=== PATIENT | male | born 1945 | race Caucasian/White ===

== ENCOUNTER 2017-03-16 10:21 | Day surgery (SDC) | payer OTHER ==
[2012-10-12 23:41] VITALS: BP 142/78
[~2017-03-16 10:21] MED LIST: LACTATED RINGERS 1,000 ML IV.SOLN IV ONE; LIDOCAINE HCL/PF 2% 100 MG/5 ML VIAL IJ ONE; PROPOFOL 500 MG/50 ML VIAL IV ONE; SALINE FLUSH 10 ML DISP.SYRIN IVF ONE
--- NOTE | 2017-03-16 15:18 | GI Report ---
REFERRING PHYSICIAN: DONTE Durham MACHINE [employer]TER [employer]ET METAL: Allen Nicholas MD PROCEDURE MEDICATION: Propofol as per anesthesia. INDICATIONS: Here for a screening colonoscopy. His last colonoscopy was over 10 years ago. No interval changes in stools or bleeding. PROCEDURE PERFORMED: Colonoscopy and snare polypectomy. PROCEDURE: An Olympus video colonoscope was advanced to the rectum. The sigmoid and descending colon does have mild diverticular disease. The colonoscope was slowly advanced to the cecum. A little bit of redundancy. It did take some nurse compression to get to the bottom of the cecum. The appendiceal orifice and ileocecal valve looked normal. On slow withdrawal, the cecum, ascending colon, and transverse colon with no obvious intraluminal lesions noted. The descending colon and sigmoid with some redundancy and a few diverticula. No additional intraluminal lesions noted. In the rectum, there was a 2 to 3 mm flat polyp removed with a cold snare at about 5 cm. Retroflexion does show some internal hemorrhoids. Patient tolerated the procedure well. FINDINGS: 1. Small polyp in the rectum, removed, 3 mm in size. 2. Internal hemorrhoids. 3. Diverticular disease of sigmoid and descending colon. RECOMMENDATIONS: 1. A high-fiber diet. 2. Consider re-looking at his colon in 5 to 10 years pending the pathology of the polyp. cc: DONTE Durham [facility]
== END 2017-03-16 10:22 ==
LOC: OPSURG 10:21
PROVIDERS: ATTEND Internal Medicine Gastroenterology
DX: Z12.11 Encounter for screening for malignant neoplasm of colon (principal); K62.1 Rectal polyp; K64.8 Other hemorrhoids; K57.30 Diverticulosis of large intestine without perforation or abscess without bleeding
CPT/HCPCS: 88305; J2001; J2704; J7120; 45385; S1016